=== PATIENT | female | born 1980 | race Caucasian/White ===

== ENCOUNTER 2020-01-13 14:17 | Emergency (ER) | payer BC, SELFPAY ==
[2020-01-13 14:19] VITALS: BP 136/70; PULSE 76; RESP 16; TEMP 36.6; O2SAT 100
--- NOTE | 2020-01-13 14:35 | ED.GENADULT ---
HPI - General Adult General Chief complaint: Wound/Laceration Stated complaint: laceration L 2nd digit Time Seen by Provider: 01/13/20 14:25 Source: patient Mode of arrival: ambulatory Limitations: no limitations History of Present Illness HPI narrative: Patient is a 39-year-old female who presents to emergency department for evaluation of laceration to the left index finger that occurred just prior to arrival patient was using a knife that was cleaned that went through the digit notes aching pain worse with activity and movement denies any other injuries or complaints does note numbness distally since the injury patient notes her tetanus is not up-to-date has not taken anything for her symptoms presents per private vehicle in no distress Related Data Home Medications Medication Instructions Recorded Confirmed No Home Medications 01/13/20 01/13/20 Allergies Allergy/AdvReac Type Severity Reaction Status Date / Time No Known Allergies Allergy Verified 01/13/20 14:57 Review of Systems Review of Systems: All systems reviewed & are unremarkable except as noted in HPI and below PMFSH Social History Social History (Updated 01/13/20 @ 14:39 by Charbel Waters PA-C) Smoking status: Never smoker Exam Narrative: Exam Narrative: GENERAL: Well-appearing, well-nourished, and in no acute distress. HEAD: Normocephalic, atraumatic. EYES: PERRLA and EOMI. ENT: Nares clear, no rhinorrhea or epistaxis. Mucous membranes moist. EXTREMITIES: Normal range of motion. No edema. Through and through laceration of the distal phalanx of the left index finger above the laceration entry points are half centimeter in length well approximated SKIN: Warm, dry, no rash. NEURO: No focal deficits. Alert and oriented x3. Neurovascularly intact PSYCH: Normal mood and affect. Course Course Emergency Course: Patient's wound were closed in the emergency department given tetanus provided with reasons to return and felt appropriate for outpatient reevaluation Vital Signs Vital signs: Vital Signs Temperature 98 F 01/13/20 14:19 Pulse Rate 76 01/13/20 14:19 Respiratory Rate 16 01/13/20 14:19 Blood Pressure 136/70 01/13/20 14:19 Pulse Oximetry 100 01/13/20 14:19 Temperature 98 F 01/13/20 14:19 Pulse Rate 76 01/13/20 14:19 Respiratory Rate 16 11/18/20 14:19 Blood Pressure 136/70 01/13/20 14:19 Pulse Oximetry 100 01/13/20 14:19 Procedures Laceration Laceration 1: Date: 01/13/20 Time: 15:40 Site: upper extremity Side (If applicable): left Size (cm): 0.5 Description: linear Depth: simple, single layer Pre-repair: wound explored ====== Skin Level ====== Skin layer closed with: steri strips ====== Subcutaneous Layer ====== ====== Muscle Layer ====== ====== Tendon Layer ====== Laceration 2: Date: 01/13/20 Time: 15:41 Site: upper extremity Side (If applicable): left Size (cm): 0.5 Description: linear Depth: simple, single layer Pre-repair: wound explored ====== Skin Level ====== Skin layer closed with: steri strips ====== Subcutaneous Layer ====== ====== Muscle Layer ====== ====== Tendon Layer ====== Medical Decision Making MDM Narrative Medical decision making narrative: Patients injury or pain is consistent with musculoskeletal etiology. No signs of neurological or vascular compromise on exam. Compartments and tisues are soft without signs of compartment syndrome. Pain is felt appropriate for further evaluation on an outpatient basis. Vital Signs Vital Signs: Vital Signs Temperature 98 F 01/13/20 14:19 Pulse Rate 76 01/13/20 14:19 Respiratory Rate 16 01/13/20 14:19 Blood Pressure 136/70 01/13/20 14:19 Pulse Oximetry 100 01/13/20 14:19 Temperature 98 F 01/13/20 14:19 Pulse Rate 76 01/13/20 14:19 Respira
[2020-01-13] MEDS: TETANUS,DIPHTHERIA,AC PERTUSSIS ADULT (0.5 ML) BOOSTRIX IM (14:48)
[2020-01-13 16:25] VITALS: BP 123/75; PULSE 82; RESP 18; O2SAT 100
== END 2020-01-13 16:25 | disposition home or self-care (01) ==
PROVIDERS: Emergency Provider Emergency Medicine; PCP Internal Medicine
DX: S61.211A Laceration without foreign body of left index finger without damage to nail, initial encounter (principal); Z23 Encounter for immunization; W26.0XXA Contact with knife, initial encounter
CPT/HCPCS: 12001; 90471; 90715; 99282